=== PATIENT | male | born 1990 ===

== ENCOUNTER → 2019-10-17 | Emergency (ER) | payer SELFPAY ==
[~2019-10-17] VITALS: Ht 170.2 cm; Wt 68.0 kg
[2019-10-17 19:50] VITALS: BP 138/80
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
[2019-10-17 20:33] LABS: EOSINOPHILS % (AUTO) 1.1 % (0.0-3.0); LYMPHOCYTES % (AUTO) 14.1 % (20.0-45.0); MEAN CORPUSCULAR VOLUME 89 FL (80-99); MONOCYTES % (AUTO) 6.2 % (1.0-10.0); NEUTROPHILS % (AUTO) 77.6 % (45.0-75.0); PLATELET COUNT 226 K/UL (150-450); RED BLOOD COUNT 5.64 M/UL (4.70-6.10); RED CELL DISTRIBUTION WIDTH 12.3 % (11.6-14.8); WHITE BLOOD COUNT 10.1 K/UL (4.8-10.8)
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
[2019-10-17 20:54] LABS: ANION GAP 15 mmol/L (5-15); BLOOD UREA NITROGEN 6 mg/dL (7-18); CALCIUM 9.2 MG/DL (8.5-10.1); CARBON DIOXIDE 21 MMOL/L (21-32); CHLORIDE 104 MMOL/L (98-107); CREATININE 1.2 MG/DL (0.55-1.30); POTASSIUM 3.2 MMOL/L (3.5-5.1); SODIUM 140 MMOL/L (136-145)
[2019-10-17 20:58] LABS: ALANINE AMINOTRANSFERASE 17 U/L (12-78); ALBUMIN 4.2 G/DL (3.4-5.0); ALBUMIN/GLOBULIN RATIO 1.3 (1.0-2.7); ALKALINE PHOSPHATASE 88 U/L (46-116); ASPARTATE AMINO TRANSFERASE 13 U/L (15-37); BILIRUBIN,TOTAL 0.3 MG/DL (0.2-1.0)
--- NOTE | 2019-10-17 21:02 | Diagnostic Imaging Report ---
EXAM: CT Lumbar Spine Without Intravenous Contrast CLINICAL HISTORY: TRAUMA TECHNIQUE: Axial computed tomography images of the lumbar spine without intravenous contrast. CTDI is 7 mGy and DLP is 233 mGy-cm. One or more of the following dose reduction techniques were used: automated exposure control, adjustment of the mA and/or kV according to patient size, use of iterative reconstruction technique. Coronal and sagittal reformatted images were created and reviewed. Axial reformatted images were created and reviewed. COMPARISON: No relevant prior studies available. FINDINGS: Vertebrae: L5 chronic appearing posterior wedge compression deformity without surrounding fat stranding or other findings to suggest acute injury. Other bones/joints: Left posterior iliac bone 1.4 cm sclerotic focus likely represents benign bone island axial series 4 image 73. Correlate with prior imaging studies if available to establish stability over time. If none available, consider follow-up as clinically directed. Discs/spinal canal/neural foramina: No acute findings. No spinal canal stenosis. Soft tissues: Unremarkable. Stomach and bowel: Segmental colonic wall thickening suggests an infectious or inflammatory colitis. Bladder: Distended urinary bladder. IMPRESSION: 1. No acute traumatic injury. 2. Distended urinary bladder. 3. Segmental colonic wall thickening suggests an infectious or inflammatory colitis. 4. L5 chronic appearing posterior wedge compression deformity without surrounding fat stranding or other findings to suggest acute injury. 5. Left posterior iliac bone 1.4 cm sclerotic focus likely represents benign bone island axial series 4 image 73. Correlate with prior imaging studies if available to establish stability over time. If none available, consider follow-up as clinically directed.
[2019-10-17 21:30] VITALS: BP 130/85
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
== END | disposition home or self-care (01) ==
LOC: EDBD 19:46 → EMR 22:03
DX: S09.90XA Unspecified injury of head, initial encounter (principal); M79.652 Pain in left thigh; W22.8XXA Striking against or struck by other objects, initial encounter; R07.9 Chest pain, unspecified
CPT/HCPCS: 36415; 70450; 71045; 72131; 73552; 80053; 83690; 85025; 93005; 96360; 99284; G0480